=== PATIENT | female | born 1975 | race Caucasian/White ===

== ENCOUNTER → 2016-12-24 | Outpatient (CLI) | payer OTHER ==
[~2016-12-24] MED LIST: FLEXERIL10 M1 PO; MEDROL4 MG/DOSE- PO; NAPROSYN500 MG PO
--- NOTE | ~2016-12-24 | US128 ---
[id number] [address] [address] [id number] MR#: [id number] Acc #: [id number] NAME: GINGER SANTOYO : 1975 SEX: F STUDY DATE/TIME: 12/24/2016 12:47 UNIT: SGUS ROOM: STUDY DESCRIPTION: US Thyroid Attending Physician: Yelitza Rivera M.D. Referring Physician: Yelitza Rivera M.D. Ordering Physician: Yelitza Rivera M.D. Primary Care Physician: Yelitza Rivera M.D. MEDICAL IMAGING REPORT This report is preliminary unless electronic signature is present. EXAM Thyroid ultrasound 12/24/2016 HISTORY Routine followup for thyroid nodules. No symptoms or new abnormality. COMPARISON Prior ultrasound dated 05/09/2016. FINDINGS There are small bilateral subcentimeter thyroid nodules all unchanged since the prior study. Overall the largest nodule is mixed cystic and solid at the left lower pole about 10 x 6 x 9 mm and unchanged since the prior study. The largest nodule on the right is hypoechoic about 5 x 4 x 9 mm and unchanged since the prior study. IMPRESSION There has been no interval change in the size, extent or number of nodules within the gland since the prior study. However, there is 1 nodule on the right which measures about 5 x 4 x 9 mm which displays 2 features which are worrisome for malignancy. It is fairly uniformly hypoechoic with some posterior acoustic shadowing and associated small calcification. Because of these features, tissue sampling is recommended. This should be easily accomplished with ultrasound guidance despite its small size. The remaining nodules demonstrate no suspicious features. Dictated by... Abdirizak Huerta M.D. THIS IS AN ELECTRONICALLY VERIFIED REPORT Abdirizak Huerta M.D. at 12/26/2016 4:52 PM SHAYAN/rose TD: 12/26/2016 10:07 JOB #: [id number] MEDICAL IMAGING REPORT Page 1 of 1
== END | disposition home or self-care (01) ==
LOC: SGUS 12:21
DX: E04.2 Nontoxic multinodular goiter (principal)
CPT/HCPCS: 76536